=== PATIENT | female | born 1980 ===

== ENCOUNTER 2017-11-03 16:01 | Emergency (ER) | payer OTHER ==
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
[2017-11-03 18:45] VITALS: BP 111/79; PULSE 76; RESP 18; TEMP 98.7; O2SAT 100
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
--- NOTE | 2017-11-03 19:35 | RAD ---
PROCEDURE: Left Knee Radiographs. HISTORY: Pain. COMPARISON: None. FINDINGS: BONES: No acute fracture or destructive bony lesion identified. JOINTS: Normal. No osteoarthritis. JOINT EFFUSION: None. OTHER FINDINGS: Limited pretibial soft tissue edema is appreciated below the left knee. IMPRESSION: No acute fracture dislocation left knee. Pretibial soft tissue edema seen below left knee.
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
--- NOTE | 2017-11-03 19:40 | RAD ---
PROCEDURE: Right Knee Radiographs. HISTORY: right knee pain COMPARISON: None. FINDINGS: BONES: No acute fracture or destructive bony lesion identified. JOINTS: Normal. No osteoarthritis. JOINT EFFUSION: None. OTHER FINDINGS: None. IMPRESSION: Unremarkable radiographs of the right knee.
== END 2017-11-03 18:46 | disposition home or self-care (01) ==
LOC: C.ER 16:01
DX: S70.02XA Contusion of left hip, initial encounter (principal); S70.12XA Contusion of left thigh, initial encounter; S80.12XA Contusion of left lower leg, initial encounter; V09.20XA Pedestrian injured in traffic accident involving unspecified motor vehicles, initial encounter